=== PATIENT | female | born 1995 | race Caucasian/White ===

== ENCOUNTER → 2017-07-09 07:36 | Outpatient (CLI) | payer MEDICAID, SELFPAY ==
[2017-07-09 09:22] LABS: Glucose GTT-Gestational 1 Hr 203 mg/dL (<190)
[2017-07-09 09:23] LABS: Glucose GTT-Gestation. Fasting 83 mg/dL (<105)
[2017-07-09 10:34] LABS: Glucose GTT-Gestational 2 Hr 195 mg/dL (<165)
[2017-07-09 12:35] LABS: Glucose GTT-Gestational 3 Hr 72 L (<145)
== END ==
PROVIDERS: Visit Provider Obstetrics & Gynecology
DX: O24.912 Unspecified diabetes mellitus in pregnancy, second trimester (principal); Z3A.00 Weeks of gestation of pregnancy not specified
CPT/HCPCS: 36415; 82951; 82952

== ENCOUNTER 2017-07-16 14:00 | Outpatient (RCR) | payer MEDICAID, SELFPAY | END 2017-07-20 23:59 | LOC: DC 14:00 | PROVIDERS: Visit Provider Obstetrics & Gynecology | DX: O24.419 Gestational diabetes mellitus in pregnancy, unspecified control (principal); Z71.3 Dietary counseling and surveillance | CPT/HCPCS: G0108 ==

== ENCOUNTER 2017-07-23 10:04 | Outpatient (RCR) | payer MEDICAID, SELFPAY | END 2017-08-12 23:59 | LOC: DC 10:04 | PROVIDERS: Visit Provider Obstetrics & Gynecology | DX: O24.419 Gestational diabetes mellitus in pregnancy, unspecified control (principal); Z3A.00 Weeks of gestation of pregnancy not specified; Z71.3 Dietary counseling and surveillance | CPT/HCPCS: 97802 ==

== ENCOUNTER → 2017-08-18 13:20 | Outpatient (CLI) | payer MEDICAID, SELFPAY ==
[2017-08-19 11:26] LABS: Group B Strep DNA By PCR Negative (Negative); Internal Control PASS; Probe Check PASS; Specimen Processing Control PASS
== END ==
PROVIDERS: Visit Provider Obstetrics & Gynecology
DX: Z36.85 Encounter for antenatal screening for Streptococcus B (principal)
CPT/HCPCS: 87081; 87653

== ENCOUNTER 2017-08-18 19:30 | Outpatient (CLI) | payer MEDICAID, SELFPAY ==
[2017-08-18 21:05] VITALS: BMI 30.3
--- NOTE | 2017-08-18 21:15 | OB.TRI.NOTE ---
History of Present Illness Date of Service: 08/18/17 Was patient seen by the physician?: No Reason For Visit: FALL Date of Service: 08/18/17 Final ANT: 09/09/17 Final ANT Source: US <20 weeks Gestational age: 36 Weeks and 6 Days History of Present Illness: 22 yo gestational diabetic with h/o prior C/S delivery. Plans repeat C/S Presents after falling over child safety gate at home, hitting her stomach. A positive blood type, and posterior fundal placenta. CC of cramping, decreased movement. Advised to come in for monitoring and likely extended monitoring 2/2 abdominal trauma, to assure well being. Allergies No Known Allergies Allergy (Verified 08/18/17 21:05) Physical Exam Station: -3 - unable to reach cervix. NST - FHR Rate Baby A Baseline: 120-130s avg variability. Accels to 160s-170s Variability:: Moderate Accelerations:: 15 x 15 Decelerations:: None NST Reactive:: Yes, Appropriate for gestational age FHR Category:: Category I Uterine Activity:: Irregular UCs q 1-5 mins with some uterine irritability. Impression/Plan 36 6/7 wk EGA . Gestational diabetes. Prior C/S. S/P Direct fall onto abdomen. Category I tracing, reactive NST with irregular UCs. False labor w/ no cervical change Given direct fall onto abdomen and presence of UCs, will observe overnight. IV fluid hydration, diabetic diet and fingersticks. Tylenol prn pain. If remains stable in am with reassuring surveillance and no labor, will discharge home
[2017-08-18] MEDS: Lactated Ringers 500 ML 999 ML IV (21:22)
[2017-08-18] MEDS: Acetaminophen 500 MG Tablet 1000 MG PO (21:34)
[2017-08-18] MEDS: Ondansetron 4 MG/2 ML Vial IV (21:34)
[2017-08-18] MEDS: Lactated Ringers 1,000 ML 125 ML IV (21:55)
[2017-08-18] MEDS: Zolpidem Tartrate 5 MG Tablet PO (23:14)
[2017-08-19] MEDS: Lactated Ringers 1,000 ML 125 ML IV (02:00)
--- NOTE | 2017-08-19 08:04 | PCM.PROGNOTE ---
Subjective: 37 wk EGA S/P fall onto abdomen Feeling some achiness and ready to have baby out. States thinks he is going to be large. Objective: Sitting up in bed. NAD watching TV S.O. in room also - Physical Exam General: Alert, Oriented x3, Cooperative, No apparent distress HEENT: Atraumatic Neck: Supple Abdomen: Soft, Gravid - EFM 120-130 s with avg variability. Accels. irregular UCs Neurological: Cranial nerves II-XII grossly intact Psych/Mental Status: Normal Affect Weight: 104.326 kg Body Mass Index (BMI) 30.3 Assessment/Plan Hospital day #2 37 wk EGA . Overnight observation. s/p fall onto abdomen. A positive. NST, EFM overnight all category I tracing with irregular UCs. Stable on observation. Dischg home. RTO in 1 wk for pnv.
== END 2017-08-19 08:25 | disposition home or self-care (01) ==
LOC: WPOUT 20:11 → WP 20:12
PROVIDERS: Visit Provider Obstetrics & Gynecology
DX: O99.89 Other specified diseases and conditions complicating pregnancy, childbirth and the puerperium (principal); S39.91XA Unspecified injury of abdomen, initial encounter; W01.0XXA Fall on same level from slipping, tripping and stumbling without subsequent striking against object, initial encounter; Y93.9 Activity, unspecified; Y92.009 Unspecified place in unspecified non-institutional (private) residence as the place of occurrence of the external cause; O24.410 Gestational diabetes mellitus in pregnancy, diet controlled; O47.03 False labor before 37 completed weeks of gestation, third trimester; Z36.85 Encounter for antenatal screening for Streptococcus B; Z3A.36 36 weeks gestation of pregnancy
CPT/HCPCS: 96361 ×4; 96374; 59025; 59050; 87081; 87653; 99218; J7120; A4216; G0378; J2405

== ENCOUNTER 2017-08-22 12:15 | Outpatient (CLI) | payer OTHER, MEDICAID, SELFPAY ==
[2017-08-22 13:53] VITALS: BMI 29.9
--- NOTE | 2017-08-23 10:41 | OB.TRI.NOTE ---
History of Present Illness Date of Service: 08/22/17 Was patient seen by the physician?: No Reason For Visit: R/O LABOR Date of Service: 08/22/17 Final ANT: 09/09/17 Final ANT Source: US <20 weeks Gestational age: 37 Weeks and 3 Days History of Present Illness: 22-year-old patient status post with first who presents with some contractions. She is concerned that she might be in labor. Allergies No Known Allergies Allergy (Verified 08/18/17 21:05) NST - FHR Rate Baby A NST Reactive:: Yes FHR Category:: Category I Uterine Activity:: Very infrequent contraction and mild. Impression/Plan 37+ week intrauterine with false labor. No cervical change after monitoring for 1-2 hours. Reactive nonstress test. Will release to home with routine follow-up.
== END 2017-08-22 13:53 | disposition home or self-care (01) ==
LOC: WPOUT 12:27 → WP 13:33
PROVIDERS: Visit Provider Obstetrics & Gynecology
DX: O47.1 False labor at or after 37 completed weeks of gestation (principal); Z3A.37 37 weeks gestation of pregnancy
CPT/HCPCS: 59025; 59050; 99218; G0378

== ENCOUNTER 2017-09-03 04:46 | Inpatient (IN) | payer OTHER, MEDICAID, SELFPAY ==
[2017-09-02 02:00] VITALS: BMI 29.2
[2017-09-03] VITALS (21 sets, daily range): BP systolic 101–118; BP diastolic 61–82; PULSE 68–97; RESP 16–20; TEMP 36.2–36.9; O2SAT 97–100
[2017-09-03] MEDS: Lactated Ringers 1,000 ML 999 ML IV (06:05)
[2017-09-03 06:06] LABS: Bedside Glucose 84 mg/dL (70-110)
--- NOTE | 2017-09-03 06:25 | NURSING ---
Obtained FHR w/ doppler; 126 bpm.
[2017-09-03 06:32] LABS: Hematocrit 35.3 % (37-47); Hemoglobin 11.3 g/dl (12.0-15.0); Mean Corpuscular Hgb 24.7 pg (27.0-32.0); Mean Corpuscular Volume 77.2 fL (81-99); Mean Platelet Vol. 9.1 fl (6.2-12.0); Platelet Count 97 K/mm3 (150-450); RBC Distribution Width CV 15.1 % (11.6-14.6); RBC Distribution Width SD 42.1 fl (35.1-43.9); Red Blood Count 4.57 M/mm3 (4.2-5.4); White Blood Count 5.5 K/mm3 (4.4-11.0)
[2017-09-03 06:51] LABS: International Normalized Ratio 1.1; Prothrombin Time (Protime)PT. 14.2 SECONDS (11.7-14.9)
[2017-09-03 06:52] LABS: Partial Thromboplast Time 30.4 Seconds (24.1-36.2)
[2017-09-03 06:57] LABS: Scan Indicated on CBC? Y/N NO
[2017-09-03] MEDS: Lactated Ringers 1,000 ML 150 ML IV (07:10)
[2017-09-03] MEDS: Sodium Citrate/Citric Acid 30 ML UDC PO (07:22)
--- NOTE | 2017-09-03 07:37 | OP.PCM_ITS ---
Operative Report Date of Procedure: 09/03/17 Surgeon: Elroy Martinez MD, FACOG Agriculture Science Teacher: TRISTIAN Keith Anesthesia: Radha Lopes MD Anesthesia: Spinal with Duramorph Pre-op Diagnosis: - -Prior Section Post-Op Diagnosis: - -Prior Section Procedure: Repeat Low Transverse Cervical Caesarean Section Findings: Viable male with Apgars of 8/9 in occiput anterior presentation with clear amniotic fluid and normal three-vessel placenta. Indication: This is a 22-year-old who presents for her second at 39+ weeks gestation. care has been remarkable for diet-controlled gestational diabetes. care has otherwise been uneventful. The patient has been counseled regarding the risk and indications of this procedure including the possibility of bleeding infection and injury to surrounding structures such as bowel bladder. All questions were answered. Procedure: Patient was taken to the operating room where after spinal anesthesia was placed, the patient was prepped and draped in usual sterile fashion and a Patel catheter was placed. The abdomen was entered through the patient's prior Pfannenstiel incision and peritoneum was entered bluntly. After developing a bladder flap on the lower uterine segment a low transverse incision was made on the uterus and head was easily delivered onto the operative field the nose mouth and oropharynx were bulb suctioned. Subsequently a viable male was born with Apgars of 8/9. The infant was noted to cry move all extremities vigorously on the operative field. The umbilical cord was doubly clamped and ligated and handed to the nursery personnel who were present for the delivery. Placenta was delivered and noted to be 3 vessels and normal. Uterus was exteriorized and remaining placental tissue was removed. The uterus was then closed in 2 layers first with running locked 0 Vicryl suture followed by a second imbricating layer with 0 Vicryl suture. 0 Vicryl suture was then used in a horizontal mattress interrupted fashion to affect final hemostasis of the uterine incision line. Normal fallopian tubes and ovaries were visualized and the uterus was returned to the pelvis. Hemostasis was noted and rectus abdominis muscles were reapproximated in the midline with interrupted Number 0 Vicryl suture in a horizontal mattress fashion. Fascia was closed with running Number 1 PDS Strata fix suture. Subcutaneous tissue was irrigated with copious amouts of saline solution and then closed with running 3-0 Vicryl suture. Skin was closed with 4-0 monocryl suture in a running subcuticular fashion. Steri strips, telfa, and tape were placed across the incision. The patient tolerated the procedure well and was taken to the recovery room in satisfactory condition. Sponge, needle, and instrument counts were all reportedly correct. EBL was 500 cc. Ancef 2 gms IV was given prior to the procedure. Spicemen to Pathology: None Complications: None
--- NOTE | 2017-09-03 07:38 | DCINST_ITS ---
Discharge Diet: No Restrictions Discharge Activity: May not drive while taking narcotic pain medications., May Shower, May Take a Tub Bath May resume sexual activity in: 4-6 weeks Lifting Restrictions: 20 pounds Additional Activity Instructions:: Nothing in the vagina for 4-6 weeks. You may return to work/school in 6 weeks. Call your doctor if your incision/area has: Continuous Slow Oozing, Sudden Increased Bleeding, Increased Pain/ Swelling, Increased Redness, Foul Smelling Discharge Call your doctor if you observe: Fever of 101 or Higher, Inability to urinate, Inability to have a bowel movement, Using more than one pad per hour Additional Instructions: If you experience any of the following, contact your healthcare provider. * Bleeding that soaks a pad every hour for 2 hours * Unrelieved incision or abdominal pain * Swelling, redness, discharge or bleeding from your incision or episiotomy site * Your incision begins to separate * Problems urinating (including inability to urinate or burning while urinating) . * Visual changes * Severe headache * Flu-like symptoms * Pain or redness in one of both of your breasts * Pain, warmth, tenderness or swelling in your legs, especially the calf area * Frequent nausea and vomiting * Symptoms of depression or anxiety If you experience any of the following, call 911 or go to the nearest Emergency Room. * Chest pain * Problems breathing * Seizure activity * Partial or complete paralysis of a body part, slurred speech, weakness or drooping of the face, or a sudden inability to walk or hold your balance Allergies/Adverse Reactions: Allergies No Known Allergies Allergy (Verified 08/18/17 21:05) Medications to take at Discharge Imodium 2 mg PO 4X/DAY PRN PRN 09/01/17 Ondansetron [Zofran Odt] 4 mg PO LUNCH MDD 24 09/01/17 Docusate Sodium [Colace] 100 mg PO BID PRN PRN #60 cap 09/03/17 Oxycodone [Oxyir] 5 mg PO Q6H PRN PRN 7 Days #20 tab 09/03/17 The following prescriptions were given: Oxycodone [Oxyir] 5 mg PO Q6H PRN PRN 7 Days #20 tab PRN Reason: Mod-Severe Pain (-12/30) Docusate Sodium [Colace] 100 mg PO BID PRN PRN #60 cap PRN Reason: Constipation Follow-Up: Call to make an appointment with your doctor for an incision check in 1-2 weeks. You will also need a 6 week post- follow up appointment. Please Follow Up With: Elroy Martinez MD - [phone] When: Call to make an appointment for an incision check in 2 weeks. Primary Care Physician: Care Physician,No Primary [Primary Care Provider] -
[2017-09-03] MEDS: Oxytocin 30 units/NS 500 ml 30 UNITS/500 ML IV.SOLN 167 UNITS IV ×2 (08:01→08:30)
[2017-09-03] MEDS: Ketorolac 30 MG/ML Syringe IV ×2 (08:35→22:39)
[2017-09-03 12:06] LABS: Bedside Glucose 86 mg/dL (70-110)
[2017-09-03] MEDS: Cefazolin 1 GM/50 ML BAG IV ×2 (15:57→23:05)
[2017-09-03] MEDS: Lactated Ringers 1,000 ML 100 ML IV ×2 (18:10→23:05)
[2017-09-03] MEDS: Lactated Ringers 500 ML 999 ML IV (18:10)
[2017-09-03] MEDS: DiphenhydrAMINE 25 MG Capsule PO (18:48)
[2017-09-03] MEDS: 0.9% Saline Lock 10 ML Syringe IV (22:39)
[2017-09-04] VITALS (8 sets, daily range): BP systolic 106–118; BP diastolic 64–76; PULSE 68–106; RESP 16–18; TEMP 36.2–37.1; O2SAT 98–100
[2017-09-04] MEDS: Ketorolac 30 MG/ML Syringe IV ×2 (04:25→11:32)
[2017-09-04] MEDS: 0.9% Saline Lock 10 ML Syringe IV (04:25)
[2017-09-04 04:45] LABS: Bedside Glucose 81 mg/dL (70-110)
[2017-09-04 04:52] LABS: Hematocrit 31.7 % (37-47); Hemoglobin 10.3 g/dl (12.0-15.0); Mean Corp Hgb Conc 32.5 g/gl (32-36); Mean Corpuscular Hgb 25.4 pg (27.0-32.0); Mean Corpuscular Volume 78.3 fL (81-99); Mean Platelet Vol. 9.9 fl (6.2-12.0); Platelet Count 112 K/mm3 (150-450); RBC Distribution Width CV 15.2 % (11.6-14.6); RBC Distribution Width SD 41.6 fl (35.1-43.9); Red Blood Count 4.05 M/mm3 (4.2-5.4); White Blood Count 8.9 K/mm3 (4.4-11.0)
[2017-09-04 05:09] LABS: Scan Indicated on CBC? Y/N NO
--- NOTE | 2017-09-04 06:40 | PCM.PN.OB ---
Subjective: POD#1 repeat C section Doing well. Pain control adequate. Plans to nurse. Would like to shower today. - Physical Exam General: Alert, Oriented x3, Cooperative, No apparent distress HEENT: Atraumatic, EOMI Neck: Supple Abdomen: Soft - Fundus firm NT at 1-2 cm inferior to umbilcus Skin: Incision - CDI. Steristrips intact. Cover dressing removed. Old dischg on pad beneath dressing towards R side. Neurological: Cranial nerves II-XII grossly intact Psych/Mental Status: Normal Affect Vital Signs Temp Pulse Resp BP Pulse Ox 98.3 F 102 H 18 112/64 98 09/04/17 04:45 09/04/17 04:45 09/04/17 04:45 09/04/17 04:45 09/04/17 04:45 Oxygen Delivery Method Room Air Weight: 100.357 kg Body Mass Index (BMI) 29.2 Intake and Output for Last 24 Hours 09/02/09/03/17 09/04/17 23:59 23:59 23:59 Intake Total 1610 / 1610 Output Total 925 / 925 900 / 900 Balance 685 / 685 -900 / -900 Laboratory Tests Past 24 Hrs 09/03/18 09/03/17 09/03/17 06:13 06:13 06:13 WBC 5.5 RBC 4.57 Hgb 11.3 L Hct 35.3 L MCV 77.2 L MCH 24.7 L MCHC 32.0 RDW 15.1 H RDW Differential 42.1 Plt Count 97 L MPV 9.1 PT 14.2 INR 1.1 APTT 30.4 Blood Type A POSITIVE Antibody Screen NEGATIVE 09/04/17 04:40 WBC 8.9 RBC 4.05 L Hgb 10.3 L Hct 31.7 L MCV 78.3 L MCH 25.4 L MCHC 32.5 RDW 15.2 H RDW Differential 41.6 Plt Count 112 L MPV 9.9 PT INR APTT Blood Type Antibody Screen POC Glucose 09/04/17 09/03/17 04:22 11:31 POC Glucose 81 86 Medical Necessity - Tobacco Use Smoking Status: Never smoker Assessment/Plan POD#1 repeat C/S Stable postop. Inc diet and activity as tolerated. Begin po meds. S/L IV for continued toradol. D/C clay for voiding trial. May shower. Continue care.
[2017-09-04] MEDS: oxyCODONE 5 MG Tablet PO ×3 (11:02→22:40)
[2017-09-05] MEDS: oxyCODONE 5 MG Tablet PO ×2 (02:57→10:10)
[2017-09-05 03:29] VITALS: BP 123/76; PULSE 92; RESP 16; TEMP 37.1
--- NOTE | 2017-09-05 07:30 | PCM.PN.OB ---
Subjective: POD#2 Repeat C/S Doing well. Would like to go home today. Pain control ok with OxyIR. States has 3 yo at home who is missing her parents. No concerns voiced otherwise. May need to wait for baby bilirubin and peds input re baby's dischg. Objective: Sitting up in bed, semirecumbent - Physical Exam General: Alert, Oriented x3, Cooperative, No apparent distress Neck: Supple Abdomen: Soft - Fundus firm minimally tender c/w postop status, inferior to umbilicus Skin: Incision - CDI. Steristrips in place but beginning to peel up. Neurological: Cranial nerves II-XII grossly intact Psych/Mental Status: Normal Affect Vital Signs Temp Pulse Resp BP Pulse Ox 98.7 F 92 16 123/76 H 100 /16/18 03:29 18 03:29 18 03:29 09/05/17 03:29 09/04/17 12:06 Oxygen Delivery Method Room Air Weight: 100.357 kg Body Mass Index (BMI) 29.2 Intake and Output for Last 24 Hours //18 //18 /16/18 23:59 23:59 23:59 Intake Total 1610 / 1610 Output Total 925 / 925 2600 / 2600 Balance 685 / 685 -2600 / -2600 Medical Necessity - Tobacco Use Smoking Status: Never smoker Assessment/Plan POD#2 repeat C/S Stable postop. Dischg today to home, pt request as 3 yo at home missing parents. RTO in 2 wk for postop check as planned., prn sooner.
--- NOTE | 2017-09-05 07:34 | PCM.DC.SUM ---
Discharge Date and Diagnosis Date of Admission: 09/03/17 - 39 wk for repeat C/S Date of Discharge: 09/05/17 - S/P repeat C/S Hospital Course and Treatment Consultations 09/03/17 06:20 Consult: Anesthesia Routine Comment: Reason For Exam: REPEAT C/S Operations: - - repeat C section Summary of Care Provided: The patient is a 22 year old F at 39 wk EGA presents for repeat C/S on 09/03/17. Procedure uncomplcated with EBL 500 cc. Delivered crump viable male Ap 8/9 Postoperative course uneventful and requesting discharge home on POD# 2. AVSS Hgb stable at 10.3 g/dl (dec from 11.3 g/dl preop) Exam benign with incision healing well. RTO in 2 wk for postop check as planned. Discharge Diet: No Restrictions Discharge Activity: May not drive while taking narcotic pain medications., May Shower, May Take a Tub Bath May resume sexual activity in: 4-6 weeks Additional Activity Instructions:: Nothing in the vagina for 4-6 weeks. You may return to work/school in 6 weeks. Call your doctor if your incision/area has: Continuous Slow Oozing, Sudden Increased Bleeding, Increased Pain/ Swelling, Increased Redness, Foul Smelling Discharge Call your doctor if you observe: Fever of 101 or Higher, Inability to urinate, Inability to have a bowel movement, Using more than one pad per hour Home Medications: Medications to take at Discharge Imodium 2 mg PO 4X/DAY PRN PRN 09/01/17 Ondansetron [Zofran Odt] 4 mg PO LUNCH MDD 24 09/01/17 Docusate Sodium [Colace] 100 mg PO BID PRN PRN #60 cap 09/03/17 Oxycodone [Oxyir] 5 mg PO Q6H PRN PRN 7 Days #20 tab 09/03/17 Following Prescrptions Were Given to Patient: Oxycodone [Oxyir] 5 mg PO Q6H PRN PRN 7 Days #20 tab PRN Reason: Mod-Severe Pain (4-10/10) Docusate Sodium [Colace] 100 mg PO BID PRN PRN #60 cap PRN Reason: Constipation Primary Care Physician: Care Physician,No Primary [Primary Care Provider] - Please Follow Up With: Elroy Martinez MD - [phone] When: Call to make an appointment for an incision check in 2 weeks. Medical Necessity - Tobacco Use Smoking Status: Never smoker Meaningful Use Info Meaningful Use Diagnoses (Choose all that apply): None applicable
--- NOTE | 2017-09-05 07:37 | DS.PCM_ITS ---
Discharge Date and Diagnosis Date of Admission: 09/03/17 - 39 wk for repeat C/S Date of Discharge: 09/05/17 - S/P repeat C/S Hospital Course and Treatment Consultations 09/03/17 06:20 Consult: Anesthesia Routine Comment: Reason For Exam: REPEAT C/S Operations: - - repeat C section Summary of Care Provided: The patient is a 22 year old F at 39 wk EGA presents for repeat C/S on 09/03/17. Procedure uncomplcated with EBL 500 cc. Delivered crump viable male Ap 8/ 9 Postoperative course uneventful and requesting discharge home on POD# 2. AVSS Hgb stable at 10.3 g/dl (dec from 11.3 g/dl preop) Exam benign with incision healing well. RTO in 2 wk for postop check as planned. Discharge Diet: No Restrictions Discharge Activity: May not drive while taking narcotic pain medications., May Shower, May Take a Tub Bath May resume sexual activity in: 4-6 weeks Additional Activity Instructions:: Nothing in the vagina for 4-6 weeks. You may return to work/school in 6 weeks. Call your doctor if your incision/area has: Continuous Slow Oozing, Sudden Increased Bleeding, Increased Pain/ Swelling, Increased Redness, Foul Smelling Discharge Call your doctor if you observe: Fever of 101 or Higher, Inability to urinate, Inability to have a bowel movement, Using more than one pad per hour Home Medications: Medications to take at Discharge Imodium 2 mg PO 4X/DAY PRN PRN 09/01/17 Ondansetron [Zofran Odt] 4 mg PO LUNCH MDD 24 09/01/17 Docusate Sodium [Colace] 100 mg PO BID PRN PRN #60 cap 09/03/17 Oxycodone [Oxyir] 5 mg PO Q6H PRN PRN 7 Days #20 tab 09/03/17 Following Prescrptions Were Given to Patient: Oxycodone [Oxyir] 5 mg PO Q6H PRN PRN 7 Days #20 tab PRN Reason: Mod-Severe Pain (4-10/10) Docusate Sodium [Colace] 100 mg PO BID PRN PRN #60 cap PRN Reason: Constipation Primary Care Physician: Care Physician,No Primary [Primary Care Provider] - Please Follow Up With: Elroy Martinez MD - [phone] When: Call to make an appointment for an incision check in 2 weeks. Medical Necessity - Tobacco Use Smoking Status: Never smoker Meaningful Use Info Meaningful Use Diagnoses (Choose all that apply): None applicable
[2017-09-05 08:00] VITALS: BP 112/73; PULSE 83; RESP 16; TEMP 36.8; O2SAT 96
== END 2017-09-05 11:00 | disposition home or self-care (01) | DRG 371 ==
PROVIDERS: Admitting Provider Obstetrics & Gynecology; Visit Provider Obstetrics & Gynecology
PROC: 10D00Z1 Extraction of Products of Conception, Low, Open Approach (ICD-10-PCS; CPT 59514; principal; 2017-09-03 07:15)
DX: O34.211 Maternal care for low transverse scar from previous cesarean delivery (principal); O24.420 Gestational diabetes mellitus in childbirth, diet controlled; Z3A.39 39 weeks gestation of pregnancy; Z37.0 Single live birth
CPT/HCPCS: 82962; 85027; 85610; 85730; 86850; 86900; 99218; J7120; A4216; G0378; J2405

== ENCOUNTER → 2018-04-28 12:17 | Outpatient (CLI) | payer MEDICAID, SELFPAY ==
[2018-04-28 15:27] LABS: Chlamydia Trachomatis by PCR Negative (Negative); Neisserai gonorrhoeae by PCR Negative (Negative); Probe Check PASS; Sample Adequacy Control PASS; Specimen Processing Control PASS
== END ==
PROVIDERS: Referring Provider Obstetrics & Gynecology; Visit Provider Obstetrics & Gynecology
DX: Z12.4 Encounter for screening for malignant neoplasm of cervix (principal); Z11.3 Encounter for screening for infections with a predominantly sexual mode of transmission
CPT/HCPCS: 87491; 87591; 88175; G0145

== ENCOUNTER → 2018-09-17 16:08 | Outpatient (CLI) | payer MEDICAID, SELFPAY ==
[2017-09-02 02:00] VITALS: BMI 29.2
== END ==
PROVIDERS: Visit Provider Obstetrics & Gynecology
DX: O23.42 Unspecified infection of urinary tract in pregnancy, second trimester (principal); Z3A.00 Weeks of gestation of pregnancy not specified
CPT/HCPCS: 87077; 87086; 87088

== ENCOUNTER 2018-12-07 19:30 | Outpatient (CLI) | payer MEDICAID, SELFPAY ==
[2017-09-02 02:00] VITALS: BMI 29.2
[2018-12-07 20:06] VITALS: BMI 32.5
[2018-12-07 20:18] LABS: Mucous, Urine 0 SEEN /hpf (<or=2+); Red Blood Cells-Urine 0 SEEN /hpf (0-5)
[2018-12-07 20:20] LABS: Color, Urine Yellow (Yellow); Glucose, Dipstick Normal (Normal); Ketone-Dipstick Negative (Negative); Leukocyte Esterase-Dipstick 100 /ul (Negative); Nitrite-Dipstick Negative (Negative); Occult Blood-Urine Negative /ul (Negative); Protein-Dipstick Negative (Negative); Urine Bilirubin Dipstick Negative (Negative); Urine Clarity Sl. Cloudy (Clear); Urine Urobilinogen Normal (Normal)
[2018-12-07 20:35] LABS: Squamous Epithelial Cells - UA 0-5 SEEN /hpf (5-10)
[2018-12-07 20:36] LABS: Bacteria 1+ /hpf (None Seen); White Blood Cells 0-5 SEEN /hpf (0-5)
[2018-12-07 20:39] LABS: ROM Internal Control Test YES-OK TO RESULT pt. (Internal QC); ROM Patient Test Negative (Negative)
[2018-12-07 20:40] LABS: Record Kit Lot#, ROM+ J8255
[2018-12-07] MEDS: Acetaminophen 500 MG Tablet 1000 MG PO (20:47)
--- NOTE | 2018-12-07 21:59 | OB.TRI.HP_ITS ---
- Problem List (1) 37 weeks gestation of Status: Acute (2) False labor Status: Acute History of Present Illness Date of Service: 12/07/18 Was patient seen by the physician?: No Reason For Visit: RULE OUT LABOR Final ANT: 12/27/18 Final ANT Source: US <20 weeks Gestational age: 37 Weeks and 1 Days History of Present Illness: 23yo @ 37 1/7wga with c/o leaking of fluid. Allergies No Known Allergies Allergy (Verified 08/18/17 21:05) - Pertinent Past Medical History Surgical History: Past Surgical History (Last Updated 12/07/18 @ 22:00 by Nancy Chris MD) Previous section 2015, 2017 Laboratory Studies: Laboratory Tests 12/07/18 12/07/18 Range/Units 20:00 20:00 Urine Color Yellow (Yellow) Urine Clarity Sl. Cloudy (Clear) Urine pH 6.0 (5.0 - 8.0) Ur Specific Walling 1.010 (1.002-1.030) Urine Protein Negative (Negative) mg/dl Urine Glucose (UA) Normal (Normal) mg/dl Urine Ketones Negative (Negative) mg/dl Urine Occult Blood Negative (Negative) /ul Urine Nitrite Negative (Negative) Urine Bilirubin Negative (Negative) mg/dL Urine Urobilinogen Normal (Normal) mg/dl Ur Leukocyte Esterase 100 H (Negative) /ul Urine RBC 0 SEEN (0-5) /hpf Urine WBC 0-5 SEEN (0-5) /hpf Ur Squamous Epith Cells 0-5 SEEN (5-10) /hpf Urine Bacteria 1+ (None Seen) /hpf Urine Mucus 0 SEEN (<or=2+) /hpf Vag Amniotic Fld Detect Negative (Negative) NST - FHR Rate Baby A Baseline: 120 Variability:: Moderate Accelerations:: 15 x 15 Decelerations:: None NST Reactive:: Yes FHR Category:: Category I Uterine Activity:: 1-3/10 Impression/Plan False labor, Reactive NST -ROM plus negative and cervix very posterior -Headache resolved with APAP. Urine with negative protein. Preeclamptic serum labs pending -Will plan repeat cervix check and if unchanged and preeclamptic labs normal will d/c home.
[2018-12-07 22:09] LABS: Absolute Lymphocyte Count 3.51 X10^3/uL (0.83-4.51); Absolute Neutrophil Count 8.6 X10^3/uL (2.0-7.7); Basophil# 0.04 X10^3/uL; Basophil% 0.3 % (0-1); Eosinophil# 0.29 X10^3/uL; Eosinophils% 2.2 % (0-5); Hematocrit 36.5 % (37-47); Lymphocyte # 3.51 X10^3/ul (4.0); Lymphocyte % 26.6 % (19-41); Mean Corp Hgb Conc 32.9 g/dL (32-36); Mean Corpuscular Hgb 26.5 pg (27.0-32.0); Mean Corpuscular Volume 80.6 fL (81-99); Monocyte# 0.69 X10^3/uL; Monocyte% 5.2 % (0-10); NRBC Flagged by Analyzer 0 % (0-5); Neutrophil # 8.58 X10^3/uL (2.7-7.7); Neutrophil % 65.2 % (47-70); Platelet Count 175 K/mm3 (150-450); RBC Distribution Width CV 13.9 % (11.6-14.6); RBC Distribution Width SD 40.5 fl (35.1-43.9); Red Blood Count 4.53 M/mm3 (4.2-5.4); White Blood Count 13.2 K/mm3 (4.4-11.0)
[2018-12-07 22:23] LABS: ALB/GLOB Ratio 0.6 RATIO (0.9-2.4); AST(SGOT) 11 U/L (15-37); Alanine Aminotransfer ALT/SGPT 12 U/L (13-56); Albumin, Serum 2.5 g/dL (3.2-5.0); Alkaline Phosphatase 146 U/L (45-117); Anion Gap 7 (5-15); BUN 9 mg/dL (7-18); BUN/Creat Ratio 13.6 RATIO (10-20); Calcium,Total 8.7 mg/dL (8.5-10.1); Chloride 109 mmol/L (98-107); Creatinine, Serum 0.66 mg/dL (0.55-1.02); EST Glomerular Filtration Rate 118 mL/min (>60); Est Glom Filt Rate - Afr Amer 142 mL/min (>60); Estimated Creatinine Clearance 159.15 ml/min; Globulin 4.2 g/dL (2.2-4.2); Glucose 92 mg/dL (74-106); Potassium 3.9 mmol/L (3.5-5.1); Protein, Total 6.7 g/dL (6.4-8.2); Sodium Level 137 mmol/L (136-145); Uric Acid 6.9 mg/dL (2.6-6.0)
[2018-12-07 22:27] LABS: Protein, Urine (Random) 12.4 mg/dL (<11.9); Protein:Creat Ratio 223 mg/g CRE (0-200)
== END 2018-12-07 23:00 | disposition home or self-care (01) ==
LOC: WPOUT 20:01 → WP 20:02
PROVIDERS: Referring Provider Obstetrics & Gynecology; Visit Provider Obstetrics & Gynecology
DX: O47.1 False labor at or after 37 completed weeks of gestation (principal); O26.893 Other specified pregnancy related conditions, third trimester; R51 Headache; Z3A.37 37 weeks gestation of pregnancy
CPT/HCPCS: 36415; 59025; 59050; 80053; 81001; 82570; 84112; 84156; 84550; 85025; 99218; G0378

== ENCOUNTER 2018-12-09 07:15 | Inpatient (IN) | payer MEDICAID, SELFPAY ==
[2018-12-09 07:32] VITALS: BMI 32.0
--- NOTE | 2018-12-09 07:38 | HP.PCM_ITS ---
History and Physical Date of Admission: 12/09/18 OB HISTORY AND PHYSICAL EXAMINATION History of this : 23 yo female Ab0 with EDC 12/27/2018 by 12 weeks 1 day Ultrasound, presents to Labor and Delivery with painful UCs since approx 3:30, 6 cm dilation at 37+ wk EGA. Seen earlier in week for r/o ROM and sent home after neg ROM test. care remarkable for : A positive. Rubella immune. GBS not done (planned C/S) 1.) Declines AFP,CF 2.) Two Prior C-sections---plan repeat, scheduled for 12/20/18 3.) Gestational diabetes with prior Pertinent Past Medical History: noncontributory except as above. Allergies: No Known Drug Allergies Medications: During - buspirone 10 mg tablet; Zoloft 50 mg tablet; Ventolin HFA 90 mcg/actuation aerosol inhaler; Zofran 8 mg tablet; 28 mg iron-800 mcg tablet Review of Systems: Contractions. PHYSICAL EXAMINATION General Appearance: 23 yo female extremely uncomfortable with contractions Crying, tearful. Vital Signs: AF, VSS Breasts: deferred Abdomen: gravid Pelvis: Cervix: 6 cm per RN exam. at presentation Presentation: cephalic Size: AGA Movement: present Heart: present Impression /Plan: Intrauterine . 37 wk EGA in labor. Prior C section. Admit for repeat C section. Difficulty with IV access. RN attempts, STRUCTURAL STEEL WORKER attempt., Dr Lopes called to [facility] See progress notes for any changes Patient H and P generated at time of admission Heriberto Ferrer MD 12/09/18 [id number]
[2018-12-09] MEDS: Lactated Ringers 1,000 ML 999 ML IV (08:20)
[2018-12-09] MEDS: Oxytocin 30 units/NS 500 ml 30 UNITS/500 ML IV.SOLN 334 UNITS IV (08:49)
--- NOTE | 2018-12-09 08:55 | PLAC_PTH ---
PATIENT: JAMAICA HINKLE LOC: [facility] U#:[id number] AGE/SX: 23/F ROOM: WP004 RE12/09/[address]: Dr. Nancy Ferrer MD : 1995 BED: 1 DIS: 12/11/2018 SPEC #: [id number] RECD: 12/09/18 09:21 STATUS: KHUSHBOO REBrady #: [id number] ALVAREZ: 12/09/18 08:[address]: Nancy Ferrer DEPT: SURGICAL PATHOLOGY RECD BY: Jerod Orr ENTERED: 12/09/18 14:24 SP TYPE: PLACENTA OTHR DR: No Primary Care Phys Tissues: Placenta, NOS Procedures: Surgery Specimen Level V HEADER OPERATION: Vaginal delivery PRE-OP DIAGNOSIS: , partial abruption TISSUE SUBMITTED: Placenta MICROSCOPIC DIAGNOSIS Rodriguez placenta (483 gm): Umbilical cord - trivascular with no inflammation. Placental membranes - no significant pathologic change. Placental disc - remote infarcts, mild Sam-Álvaro change and mild chronic decidual inflammation. AM:gregoria 12/13/18 MICROSCOPIC DESCRIPTION Slides are reviewed. GROSS DESCRIPTION SPECIMEN: PLACENTA / CLINICAL INFORMATION: A. Weight: 3.07 kg B. Gestational Age: 37 weeks C. Sex: Male PLACENTAL WEIGHT (POST FIXATION): 483 gm PLACENTAL DIMENSIONS: 20 x 14 x 3 cm PLACENTAL SHAPE: Usual ovoid PLACENTAL WEIGHT FOR GESTATIONAL AGE: Within 10-99th percentile MEMBRANES - Present A. Insertion: Marginal B. Site of rupture from edge: 6 cm from edge of placental disc C. Color of membrane: Lovell-rutherford D. Abnormalities: None UMBILICAL CORD - Present A. Color: Lovell-rutherford B. Insertion: Eccentric C. Length: 47 cm D. Diameter: 1 cm E. Number of vessels: Three F. Abnormalities: None PLACENTAL DISC - Present A. Color of surface: Lovell-rutherford B. surface abnormalities: None C. Maternal cotyledons: Intact with minimal tears D. Attached retro placental clot: No clot E. Cut surface: Dark red and spongy F. Lesions: Serial sections reveal two firm, plaque-like, white lesions ranging in size from 2 to 5 cm in greatest dimension. G. Separate clot: 9 x 6 x 1 cm SECTIONS SUBMITTED: 1. Umbilical cord ( end inked) 2. Membrane roll, lesions 3. Placental disc, and maternal surfaces 4. Placental disc, and maternal surfaces 5. Placental disc, and maternal surfaces AM:gregoria 12/10/18 TC:3 CPT: 45892
--- NOTE | 2018-12-09 08:57 | PCM.OPRPT ---
Vaginal Delivery Maternal Presentation: Active Labor 37 3/7wk EGA . Two prior C sections. Rapid progress with increased vaginal bleeding Amniotic Membrane Rupture Type: Artificial Amniotic Fluid Description: Clear Final ANT: 12/27/18 Gestational age: 37 Weeks and 4 Days Date of Procedure: 12/09/18 Pre-Operative Diagnosis: 37 3/7 wk labor prior c section deliveries (TWO) Post-Operative Diagnosis: Same suspected partial placental abruption Surgery/ Procedure Performed: Spontaneous Vaginal Delivery - Type of Anesthesia: None Description of Procedure: 23 yo female with hx of two prior C section deliveries, presents in labor at 6 cm. Patient intermittently very painful with contractions, but not painful between contractions. IV could not be established easily and IV therapy called to establish the IV. Lab draw was also difficult and while attempting both IV access and lab draw, labor progressed. Patient with urge to push, increased vaginal bleeding, and reassuring heart rate tracing. Exam: complete, IBOW, 0 station. AROM performed and patient began to push. FHR in 70-80s as vertex rapidly descended. of a crump viable male over intact perineum. Head delivered ESHA, followed by shoulders. Cord around neck times two reduced after delivery. Cord around body and leg also reduced. Infant to maternal abdomen with spontaneous cry. Cord clamped times two and cut at approximately 30 sec Ap 11/29 Placenta delivered easily by spontaneous expulsion. Appearance of placenta consistent with an area of old infarct. Clot adherent to placenta and rapid progress of labor with increased vaginal bleeding all suspicious for partial placental abruption. Placenta otherwise intact with trailing membranes, 3 V cord. PP exam; 1st degree at L anterior labia, hemostatic and posterior vaginal laceration also hemostatic. No repair made, no anesthesia. Pt and tolerated delivery well. To recovery in stable condition Ray Trey counts correct times two. Presentation: Vertex Placental Delivery Description: Spontaneous, Expressed Placenta Disposition: Routine to Lab Cord Vessel Description: 3 Vessels Nuchal Cord Compression: Without compression Cord Entanglement: Around neck x 2, loose - cord around body also and cord around leg. Estimated Blood Loss: 450 A gender: Male (1 minute): 9 (5 minute): 9 Episiotomy Description: None Laceration: Midline, Vaginal Extension/lac - hemostatic, no repair, no anesthesia, 1st degree Medications given after delivery: IV Pitocin Complications: None
--- NOTE | 2018-12-09 08:59 | DCINST_ITS ---
Discharge Diet: No Restrictions Discharge Activity: May Shower, May Take a Tub Bath May resume sexual activity in: 4-6 weeks Additional Activity Instructions:: Nothing in the vagina for 4-6 weeks. You may return to work/school in 6 weeks. Additional Instructions: If you experience any of the following, contact your healthcare provider. * Bleeding that soaks a pad every hour for 2 hours * Fever 100.4 or higher * Unrelieved abdominal pain * Problems urinating (including inability to urinate or burning while urinating). * Visual changes * Severe headache * Flu-like symptoms * Pain or redness in one of both of your breasts * Pain, warmth, tenderness or swelling in your legs, especially the calf area * Frequent nausea and vomiting * Symptoms of depression or anxiety If you experience any of the following, call 911 or go to the nearest Emergency Room. * Chest pain * Problems breathing * Seizure activity * Partial or complete paralysis of a body part, slurred speech, weakness or drooping of the face, or a sudden inability to walk or hold your balance Allergies/Adverse Reactions: Allergies No Known Allergies Allergy (Verified 12/09/18 07:33) Medications to take at Discharge Prenatabs FA 1 tab PO DAILY 12/07/18 Please Follow Up With: Elroy Martinez MD - [phone] When: Call to make an appointment with your doctor in 6 weeks. Primary Care Physician: Care Physician,No Primary [Primary Care Provider] - Test Results: Test results from this visit will be discussed in further detail at your follow- up appointment, if applicable. Proposed Discharge Date: 12/11/18
--- NOTE | 2018-12-09 08:59 | PCM.DCVAG ---
Discharge Diet: No Restrictions Discharge Activity: May Shower, May Take a Tub Bath May resume sexual activity in: 4-6 weeks Additional Activity Instructions:: Nothing in the vagina for 4-6 weeks. You may return to work/school in 6 weeks. Additional Instructions: If you experience any of the following, contact your healthcare provider. Bleeding that soaks a pad every hour for 2 hours Fever 100.4 or higher Unrelieved abdominal pain Problems urinating (including inability to urinate or burning while urinating). Visual changes Severe headache Flu-like symptoms Pain or redness in one of both of your breasts Pain, warmth, tenderness or swelling in your legs, especially the calf area Frequent nausea and vomiting Symptoms of depression or anxiety If you experience any of the following, call 911 or go to the nearest Emergency Room. Chest pain Problems breathing Seizure activity Partial or complete paralysis of a body part, slurred speech, weakness or drooping of the face, or a sudden inability to walk or hold your balance Allergies/Adverse Reactions: Allergies No Known Allergies Allergy (Verified 12/09/18 07:33) Medications to take at Discharge Prenatabs FA 1 tab PO DAILY 12/07/18 Please Follow Up With: Elroy Martinez MD - [phone] When: Call to make an appointment with your doctor in 6 weeks. Primary Care Physician: Care Physician,No Primary [Primary Care Provider] - Test Results: Test results from this visit will be discussed in further detail at your follow-up appointment, if applicable. Proposed Discharge Date: 12/11/18
[2018-12-09 09:19] LABS: Pathology Specimen OB SEE PATHOLOGY REPORT
[2018-12-09] MEDS: Ketorolac 30 MG/ML Syringe IV (09:43)
[2018-12-09 12:00] VITALS: BP 133/82; PULSE 81; RESP 16; TEMP 36.8
[2018-12-09 14:14] LABS: Hematocrit 34.5 % (37-47); Mean Corp Hgb Conc 31.9 g/dL (32-36); Mean Corpuscular Hgb 25.5 pg (27.0-32.0); Mean Corpuscular Volume 79.9 fL (81-99); Mean Platelet Vol. 11.7 fl (6.2-12.0); Platelet Count 198 K/mm3 (150-450); RBC Distribution Width CV 14.1 % (11.6-14.6); RBC Distribution Width SD 40.5 fl (35.1-43.9); Red Blood Count 4.32 M/mm3 (4.2-5.4); White Blood Count 18.6 K/mm3 (4.4-11.0)
[2018-12-09 14:43] LABS: AST(SGOT) 17 U/L (15-37); Alanine Aminotransfer ALT/SGPT 14 U/L (13-56); Creatinine, Serum 0.87 mg/dL (0.55-1.02); EST Glomerular Filtration Rate 86 mL/min (>60); Est Glom Filt Rate - Afr Amer 105 mL/min (>60); Estimated Creatinine Clearance 120.73 ml/min; Uric Acid 7.2 mg/dL (2.6-6.0)
[2018-12-09 15:30] VITALS: BP 139/87; PULSE 80; RESP 16; TEMP 36.4
[2018-12-09 15:33] LABS: HIV - WCH Non-Reactive (Nonreactive)
[2018-12-09 16:06] LABS: Protein, Urine (Random) 106.9 mg/dL (<11.9); Protein:Creat Ratio 1926 mg/g CRE (0-200)
[2018-12-09 18:35] VITALS: BP 122/89; PULSE 88; RESP 16; TEMP 36.4
[2018-12-09 19:49] VITALS: BP 139/84; PULSE 101; RESP 18; TEMP 36.6; O2SAT 98
--- NOTE | 2018-12-09 19:49 | NURSING ---
Patient denies headache or visual changes.
[2018-12-09 23:50] VITALS: BP 134/86; PULSE 88; RESP 18; TEMP 36.6; O2SAT 98
[2018-12-10] MEDS: Senna/Docusate Sodium 1 Tablet PO ×2 (00:06→12:59)
[2018-12-10 04:01] VITALS: BP 113/72; PULSE 85; RESP 16; TEMP 36.1; O2SAT 98
--- NOTE | 2018-12-10 04:07 | NURSING ---
Patient refusing CBC at this time. Educated patient on importance of CBC. Patient verbalizes understanding.
[2018-12-10] MEDS: 0.9% Saline Lock 10 ML Syringe IV (06:22)
--- NOTE | 2018-12-10 06:51 | NURSING ---
This RN reviewed and agree with Carlos og
[2018-12-10 08:00] VITALS: BP 135/91; PULSE 82; RESP 16; TEMP 36.6
--- NOTE | 2018-12-10 08:28 | PCM.PN.OB ---
Subjective: PPD#1 unintended after second C Section. Unable to establish IV access and obtain labs while preparing for C Section. Rapid progress of labor and inc vaginal bleeding during labor All suspicious for partical placental abruption Pt doing well. Refuses CBC. Labs obtained after delivery c/w evolving preeclampsia with inc proteinuria and elevated uric acid. - Physical Exam General: Alert, Oriented x3, Cooperative, No apparent distress HEENT: Atraumatic, EOMI Abdomen: Soft - fundus firm inferior to umbilicus Psych/Mental Status: Normal Affect Vital Signs Temp Pulse Resp BP Pulse Ox 97 F L 85 16 113/72 98 12/10/18 04:01 12/10/18 04:01 12/10/18 04:01 12/10/18 04:01 12/10/18 04:01 Oxygen Delivery Method Room Air Weight: 110 kg Body Mass Index (BMI) 32.0 Intake and Output for Last 24 Hours 12/08/18 12/09/18 12/10/18 23:59 23:59 23:59 Intake Total 982.85 / 982.85 Output Total 300 / 300 Balance 682.85 / 682.85 Laboratory Tests Past 24 Hrs 12/09/18 12/09/18 12/09/18 13:25 13:25 13:25 WBC 18.6 H RBC 4.32 Hgb 11.0 L Hct 34.5 L MCV 79.9 L MCH 25.5 L MCHC 31.9 L RDW Std Deviation 40.5 RDW Coeff of Denis 14.1 Plt Count 198 MPV 11.7 Creatinine 0.87 Estim Creat Clear Calc 120.73 Est GFR (MDRD) Af Amer 105 Est GFR (MDRD) Non-Af 86 Uric Acid 7.2 H AST 17 ALT 14 U Random Total Protein Urine Creatinine Protein/Creatinin Ratio HIV 1&2 Antibody Blood Type A POSITIVE Antibody Screen NEGATIVE 12/09/18 12/09/18 13:25 15:44 WBC RBC Hgb Hct MCV MCH MCHC RDW Std Deviation RDW Coeff of Denis Plt Count MPV Creatinine Estim Creat Clear Calc Est GFR (MDRD) Af Amer Est GFR (MDRD) Non-Af Uric Acid AST ALT U Random Total Protein 106.9 H Urine Creatinine 55.50 Protein/Creatinin Ratio 1926 H HIV 1&2 Antibody Non-Reactive Blood Type Antibody Screen Medical Necessity - Tobacco Use Smoking Status: Never smoker Assessment/Plan 37 3/7 wk (unintended) Supected placental abruption. Unknown GBS status as culture not done for planned repeat C/S Stable pp Continue routine pp care. Declined CBC recommended this AM Placenta sent to path re potential abruption with increased bleeding during labor, adherent clot.
[2018-12-10] MEDS: Prenatal Vits Tablet 1 TABLET PO (12:59)
[2018-12-10 14:00] VITALS: BP 127/85; PULSE 77; RESP 16; TEMP 36.3
[2018-12-10] MEDS: Ibuprofen 600 MG Tablet PO (18:45)
[2018-12-10 19:45] VITALS: BP 135/88; PULSE 85; RESP 16; TEMP 36.4; O2SAT 97
[2018-12-11 02:30] VITALS: BP 131/84; PULSE 86; RESP 16; TEMP 36.6; O2SAT 98
--- NOTE | 2018-12-11 07:15 | PCM.PN.OB ---
Subjective: Feeling well, back is a little sore, well controlled with Ibuprofen and Tyolenol, passing flatus, tolerating diet well; is going well, milk has come in; denies nausea, epigastric pain, BHARDWAJ or visual changes; declines CBC despite discussion of elevated labs c/w preeclampsia PP day #1; desires DC home Objective: Fundus u/1, firm, midline, lochia scant; breasts soft, filling - Physical Exam General: Alert, Oriented x3, Cooperative, No apparent distress HEENT: PERRLA, EOMI Oral: Moist Mucosa Neck: Supple Abdomen: Soft, Non Tender Extremities: Capillary Refill Less than 3 Seconds, No Calf Tenderness Neurological: Cranial nerves II-XII grossly intact, Deep Tendon Reflexes 2+/4 and Symmetrical Psych/Mental Status: Normal Affect, Appropriate Vital Signs Temp Pulse Resp BP Pulse Ox 97.8 F 86 16 131/84 H 98 12/11/18 02:30 12/11/18 02:30 12/11/18 02:30 12/11/18 02:30 12/11/18 02:30 Oxygen Delivery Method Room Air Weight: 242 lb 8.136 oz Body Mass Index (BMI) 32.0 Intake and Output for Last 24 Hours 12/09/18 12/10/18 12/11/18 23:59 23:59 23:59 Intake Total 982.85 / 982.85 Output Total 300 / 300 Balance 682.85 / 682.85 Medical Necessity - Tobacco Use Smoking Status: Never smoker Assessment/Plan Assessment; PP Day 2, normal involution, normal PP course w/exception of labs c/w evolving preeclampsia; pt is asymptomatic well, adequate support at home Plan: Discussed warning signs, when to call Dr. Ferrer aware of labs, pt pp course, approves DC home DC home today Follow up in office in 6 weeks
--- NOTE | 2018-12-11 07:47 | PCM.DC.SUM ---
Discharge Date and Diagnosis Date of Admission: 12/09/18 Date of Discharge: 12/11/18 - Primary Discharge Diagnosis S/P , after 2 cesareans Hospital Course and Treatment Operations: - - , after 2 ceseareans Summary of Care Provided: The patient is a 23 yo female G3 now P3 with EDC 12/27/2018 by 12 weeks 1 day Ultrasound, who presented to Labor and Delivery teena and with advanced dilation prior to a scheduled c/section; she progressed quickly and delivered by unintended after 2 prior cesareans; course has been uneventful w/exception of PP day #1 labs c/w evolving preeclampsia; patient is asymptomatic, and despite extensive counseling, declines further labs and desires DC home today, PP day #2. Subjective: Feeling well, well, declines CBC despite labs c/w evolving preeclampsia and extensive counseling. Denies BHARDWAJ, nausea, epigastric pain, visual changes Objective: Fundus firm, midline u/1, lochia scant - Physical Exam General: Alert, Oriented x3, No apparent distress HEENT: PERRLA, EOMI Oral: Moist Mucosa Neck: Supple Lungs: Normal air movement Abdomen: Soft, Non Tender Extremities: No edema Neurological: Cranial nerves II-XII grossly intact, Deep Tendon Reflexes 2+/4 and Symmetrical Psych/Mental Status: Normal Affect, Appropriate, Alert and oriented to time, place, person, mood and affect Vital Signs Temp Pulse Resp BP Pulse Ox 97.8 F 86 16 131/84 H 98 12/11/18 02:30 12/11/18 02:30 12/11/18 02:30 12/11/18 02:30 12/11/18 02:30 Oxygen Delivery Method Room Air Weight: 242 lb 8.136 oz Body Mass Index (BMI) 32.0 Intake and Output for Last 24 Hours 12/09/18 12/10/18 12/11/18 23:59 23:59 23:59 Intake Total 982.85 / 982.85 Output Total 300 / 300 Balance 682.85 / 682.85 Discharge Diet: No Restrictions Discharge Activity: May Shower, May Take a Tub Bath May resume sexual activity in: 4-6 weeks Additional Activity Instructions:: Nothing in the vagina for 4-6 weeks. You may return to work/school in 6 weeks. Home Medications: Medications to take at Discharge Prenatabs FA 1 tab PO DAILY 12/07/18 Primary Care Physician: Care Physician,No Primary [Primary Care Provider] - Please Follow Up With: Elroy Martinez MD - [phone] Disposition: Home Patient Condition:: Stable Medical Necessity - Tobacco Use Smoking Status: Never smoker Meaningful Use Info Meaningful Use Diagnoses (Choose all that apply): None applicable
[2018-12-11 08:00] VITALS: BP 134/89; PULSE 78; RESP 16; TEMP 36.6; O2SAT 99
== END 2018-12-11 08:25 | disposition home or self-care (01) | DRG 560 ==
PROVIDERS: Admitting Provider Obstetrics & Gynecology; Referring Provider Obstetrics & Gynecology; Visit Provider Obstetrics & Gynecology
DX: O34.219 Maternal care for unspecified type scar from previous cesarean delivery (principal); O62.3 Precipitate labor; O45.8X3 Other premature separation of placenta, third trimester; O69.81X0 Labor and delivery complicated by cord around neck, without compression, not applicable or unspecified; O69.82X0 Labor and delivery complicated by other cord entanglement, without compression, not applicable or unspecified; O70.0 First degree perineal laceration during delivery; O14.95 Unspecified pre-eclampsia, complicating the puerperium; Z3A.37 37 weeks gestation of pregnancy; Z37.0 Single live birth; Z87.59 Personal history of other complications of pregnancy, childbirth and the puerperium
CPT/HCPCS: 36415; 59025; 59050; 80053; 81001; 82565; 82570; 84112; 84156; 84450; 84460; 84550; 85025; 85027; 86703; 86850; 86900; 86901; 88307; 99218; J7120; A4216; G0378

== ENCOUNTER → 2019-01-27 14:42 | Outpatient (CLI) | payer MEDICAID, SELFPAY | PROVIDERS: Referring Provider Obstetrics & Gynecology; Visit Provider Obstetrics & Gynecology | DX: R87.612 Low grade squamous intraepithelial lesion on cytologic smear of cervix (LGSIL) (principal) ==

== ENCOUNTER → 2019-03-03 14:34 | Outpatient (CLI) | payer MEDICAID, SELFPAY ==
--- NOTE | 2019-03-03 | IMM_PTH ---
PATIENT: JAMAICA HINKLE LOC: [facility] U#:[id number] AGE/SX: 29/F ROOM: RE03/03/[address]: Dr. Elroy Martinez MD : 1995 BED: DIS: SPEC #: [id number] RECD: 03/07/19 12:53 STATUS: KHUSHBOO CHIVO #: [id number] ALVAREZ: 03/03/19 00:[address]: Elroy Martinez DEPT: IMMUNOHISTOCHEMISTRY RECD BY: Marina Almaraz ENTERED: 03/07/19 12:54 SP TYPE: IMMUNO OTHR DR: No Primary Care Phys Tissues: A - Uterine cervix, NOS B - Endocervical Procedures: p16 (initial) KI-67 (add) PHYSICIAN & INSTITUTION [place] [id number] SPECIMEN INFORMATION: Tissue Source: A - Cervix, four-quadrant biopsy, B - Endocervix, curettings Clinical Info: R87.610, R87.810 Specimen Number: [id number] A & B CPT code: 57776 x2, 46954 x2 METHODOLOGY: Deparaffinized sections of prefer/formalin-fixed tissue or PAP/DQ stained slides are incubated with monoclonal/polyclonal antibodies/oligonucleotide probes. Localization is made via biotin free immunoperoxidase method. Appropriate controls are performed and reacted as expected. Results on target cell population are indicated in the following table: RESULTS: ANTIBODY / CLONE RESULT Block A P16 (E6H4) positive, focal, block-like Ki-67 (30-9) positive, low (20%) Block B P16 (E6H4) positive, focal, patchy Ki-67 (30-9) negative These tests were developed and their performance characteristics determined by [facility]. They may not have been cleared or approved by the U.[place]. Food and Drug Administration. The FDA has determined that such clearance or approval is not necessary. The above immunohistochemical/dualISH markers are ordered and reviewed by the Pathologist. INTERPRETATION: A. Cervix, four-quadrant biopsy: Mild and focal moderate squamous dysplasia, ALANA II (HSIL). B. Endocervix, curettings: Consistent with focal HPV change. AM:gregoria 03/08/19
--- NOTE | 2019-03-03 13:35 | CER_PTH ---
PATIENT: JAMAICA HINKLE [facility]: [facility] U#:[id number] AGE/SX: 29/F ROOM: RE03/03/[address]: Dr. Elroy Martinez MD : 1995 BED: DIS: SPEC #: [id number] RECD: 03/04/19 18:00 STATUS: KHUSHBOO CHIVO #: [id number] ALVAREZ: 03/03/19 13:[address]: Elroy Martinez DEPT: SURGICAL PATHOLOGY RECD BY: Monico Esteban ENTERED: 03/04/19 09:07 SP TYPE: CERV OT DR: No Primary Care Phys Tissues: A - Uterine cervix, NOS B - Endocervical Procedures: Surgery Specimen Level IV HEADER OPERATION: Colposcopy PRE-OP DIAGNOSIS: R87.610, R87.810 TISSUE SUBMITTED: A. Four quadrant of cervix, B. ECC MICROSCOPIC DIAGNOSIS A. 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 Endocervix with squamous metaplasia and chronic inflammation. See comment. B. Endocervix, curettings: Strips of benign superficial endocervix. Detached squamous epithelial cells with HPV change. See comment. AM:gregoria 03/07/19 COMMENT A & B. Results from immunohistochemistry ([id number]) for surrogate HPV marker (p16) will be reported separately. Case has been reviewed in consultation with Dr. Aguirre who concurs with the above diagnosis. IDC:SJ MICROSCOPIC DESCRIPTION Slides are reviewed. GROSS DESCRIPTION A - Received is one container labeled with the patient's name and not further designated. The specimen consists of multiple irregular fragments of light matta soft tissue that in aggregate measure 1 x 0.7 x 0.1 cm. The specimen is totally submitted in one cassette. B - Received is one container labeled with the patient's name and not further designated. The specimen consists of an irregular fragment of reddish-matta mucoid tissue that measures 1 x 1 x <0.1 cm. The specimen is totally submitted in one cassette. / AM:gregoria 03/04/19 TC:3 CPT: 52129 x2
== END ==
PROVIDERS: Referring Provider Obstetrics & Gynecology; Visit Provider Obstetrics & Gynecology
DX: R87.610 Atypical squamous cells of undetermined significance on cytologic smear of cervix (ASC-US) (principal); R87.810 Cervical high risk human papillomavirus (HPV) DNA test positive
CPT/HCPCS: 88305; 88341; 88342